=== PATIENT | male | born 1950 | race Caucasian/White ===

== ENCOUNTER 2018-06-18 12:47 | Emergency (ER) | payer MEDICARE ==
[~2018-06-18] VITALS: Ht 162.6 cm; Wt 107.5 kg
[~2018-06-18 12:47] MED LIST: BLOOD PRESSURE; CHLORTHALIDONE25 MG PO; LEXAPRO20 MG; LEXAPRO20 MG PO; PAXIL10 MG PO; XANAX 1 MG TABLE1 MG PO; XANAX1 MG
[2018-06-18 13:49] LABS: ABSOLUTE BASOPHILS 0.1 thou/uL (0.0-0.2); ABSOLUTE EOSINOPHILS 0.1 thou/uL (0.0-0.7); ABSOLUTE LYMPHOCYTES 2.7 thou/uL (0.8-5.3); ABSOLUTE MONOCYTES 0.6 thou/uL (0.0-1.2); ABSOLUTE NEUTROPHILS 5.5 thou/uL (1.6-8.1); BASOPHILS 0.8 %; EOSINOPHILS 1.4 %; HEMATOCRIT 42.7 % (42.0-52.0); HEMOGLOBIN 14.2 gm/dL (14.0-18.0); LYMPHOCYTES 29.8 %; MCH 30.5 pg (26.0-34.0); MCHC 33.2 g/dL (28.0-37.0); MCV 91.7 fL (80.0-100.0); MONOCYTES 6.3 %; MPV 8.4 fl. (7.2-11.1); NUCLEATED RBCS 0 /100WBC; PLATELET COUNT* 167 thou/uL (150-400); POLYS 61.7 %; RBC 4.65 mil/uL (4.50-6.00); RDW-CV 13.7 % (10.5-14.5)
[2018-06-18 13:58] LABS: ANION GAP 6 mmol/L (7-16); BUN 13 mg/dL (7-18); CALCIUM 8.5 mg/dL (8.5-10.1); CHLORIDE 103 mmol/L (98-107); CO2 30 mmol/L (21-32); GLUCOSE 252 mg/dL (70-99); POTASSIUM 4.4 mmol/L (3.5-5.1); SODIUM 139 mmol/L (136-145)
[2018-06-18 14:00] LABS: PROTIME 10.4 Seconds (9.20-11.50)
[2018-06-18 14:09] LABS: ALBUMIN 3.3 g/dL (3.4-5.0); ALKALINE PHOSPHATASE 60 U/L (46-116); LIPASE 209 U/L (73-393); NT-PRO BRAIN NAT PEPTIDE 82 pg/mL (<300); SGOT 14 U/L (15-37); SGPT 29 U/L (30-65); TOTAL BILIRUBIN 0.2 mg/dL (<0.1-1.0); TROPONIN-I LEVEL <0.06 ng/mL (<0.06)
[2018-06-18] MEDS ORDERED: METFORMIN HCL500 MG PO (15:59)
[2018-06-18] MEDS ORDERED: PAXIL20 MG PO (15:59)
[2018-06-18 16:01] VITALS: BP 159/86
--- NOTE | 2018-06-19 08:37 | EKG ---
[place] [address] ELECTROCARDIOGRAM REPORT Name: SANDIE MALAVE Room: [facility]#: [id number] Admission: 06/18/18 Attend Phys: Discharge: 06/18/18 Date of : 52 Report #: [id number] THIS REPORT FOR: //name// [facility] ED Test Date: 2018-06-18 Test Time: 13:34:32 Pat Name: SANDIE MALAVE Department: Room: Gender: M Mirror Framer: Raza PRIETO : 1950 Requested By: Priyanka Bhat Order Number: [id number] MD: Roman Cancino Measurements Intervals Burton Rate: 70 P: 11 MS: 188 QRS: 3 QRSD: 94 T: 110 QT: 385 QTc: 416 Interpretive Statements Sinus rhythm Nonspecific T abnormalities, lateral leads No previous ECG available for comparison Electronically Signed On 06-19-2018 8:37:15 UNDERWRITING SUPPORT SPECIALIST by Roman Cancino [email or web address] <ELECTRONICALLY SIGNED> By: Roman Cancino MD, [facility] 06/19/18 0837 1334 Roman [email or web address] MD, FACC /EPI
== END 2018-06-18 16:02 | disposition home or self-care (01) ==
LOC: M.ERS 12:47
PROVIDERS: Personal Emergency Response Attendant
DX: E86.0 Dehydration (principal); R53.1 Weakness; I10 Essential (primary) hypertension; F41.9 Anxiety disorder, unspecified